=== PATIENT | female | born 1955 | race Caucasian/White ===

== ENCOUNTER 2021-10-28 14:58 | Outpatient (CLI) | payer MEDICARE, BC, SELFPAY ==
[2021-10-28 21:41] LABS: Albumin* 4.5 g/dL (3.3-5.0); Chloride* 105 mmol/L (96-114); Sodium* 141 mmol/L (135-149)
[2021-10-28 21:42] LABS: Potassium* 3.9 mmol/L (3.6-5.1)
[2021-10-28 21:44] LABS: Alanine Aminotransferase* 20 U/L (4-35); Alkaline Phosphatase* 106 U/L (40-150); Aspartate Amino Transferase* 29 U/L (12-35); Bilirubin Total* 0.5 mg/dL (0.1-1.5); Blood Urea Nitrogen* 19 mg/dL (7-30); Calcium* 9.5 mg/dL (8.4-10.6); Carbon Dioxide* 27 mmol/L (20-32); Creatinine* 0.9 mg/dL (0.5-1.5); Estimated Glomerular Filt Rate 70 ml/min; Glucose* 93 mg/dL (60-115); Total Protein* 7.4 g/dL (6.0-8.3)
[2022-12-07 15:37] LABS: Anion Gap 9 mEq/L (7-15)
== END 2021-10-28 14:59 | disposition home or self-care (01) ==
LOC: FRMREF 14:58
PROVIDERS: PCP Family Medicine; Visit Provider Dermatology
DX: Z79.899 Other long term (current) drug therapy (principal); Z51.81 Encounter for therapeutic drug level monitoring; L30.9 Dermatitis, unspecified
CPT/HCPCS: 80053

== ENCOUNTER 2021-12-02 11:48 | Outpatient (CLI) | payer MEDICARE, BC, SELFPAY ==
[2021-12-02 21:45] LABS: Albumin* 4.6 g/dL (3.3-5.0); Potassium* 4.5 mmol/L (3.6-5.1); Sodium* 140 mmol/L (135-149)
[2021-12-02 21:48] LABS: Alanine Aminotransferase* 38 U/L (4-35); Alkaline Phosphatase* 101 U/L (40-150); Aspartate Amino Transferase* 37 U/L (12-35); Bilirubin Total* 0.7 mg/dL (0.1-1.5); Blood Urea Nitrogen* 15 mg/dL (7-30); Calcium* 9.6 mg/dL (8.4-10.6); Carbon Dioxide* 28 mmol/L (20-32); Creatinine* 0.8 mg/dL (0.5-1.5); Estimated Glomerular Filt Rate 81 ml/min; Glucose* 98 mg/dL (60-115); Total Protein* 7.3 g/dL (6.0-8.3)
[2021-12-02 22:01] LABS: Chloride* 104 mmol/L (96-114)
== END 2021-12-02 11:49 | disposition home or self-care (01) ==
LOC: FRMREF 11:56
PROVIDERS: PCP Family Medicine; Visit Provider Dermatology
DX: Z79.899 Other long term (current) drug therapy (principal)
CPT/HCPCS: 80053

== ENCOUNTER 2022-02-24 08:54 | Outpatient (CLI) | payer MEDICARE, BC, SELFPAY ==
[2022-02-24 21:47] LABS: Albumin* 4.6 g/dL (3.3-5.0); Chloride* 105 mmol/L (96-114)
[2022-02-24 21:48] LABS: Sodium* 142 mmol/L (135-149)
[2022-02-24 21:50] LABS: Alanine Aminotransferase* 65 U/L (4-35); Alkaline Phosphatase* 82 U/L (40-150); Aspartate Amino Transferase* 51 U/L (12-35); Bilirubin Total* 0.6 mg/dL (0.1-1.5); Blood Urea Nitrogen* 13 mg/dL (7-30); Carbon Dioxide* 30 mmol/L (20-32); Creatinine* 0.7 mg/dL (0.5-1.5); Estimated Glomerular Filt Rate 95 ml/min; Glucose* 111 mg/dL (60-115); Total Protein* 7.3 g/dL (6.0-8.3)
[2022-02-24 21:51] LABS: Calcium* 9.5 mg/dL (8.4-10.6)
== END 2022-02-24 08:55 | disposition home or self-care (01) ==
LOC: FRMREF 13:29
PROVIDERS: PCP Family Medicine; Visit Provider Dermatology
DX: Z51.81 Encounter for therapeutic drug level monitoring (principal); Z79.899 Other long term (current) drug therapy
CPT/HCPCS: 80053

== ENCOUNTER 2022-05-07 12:05 | Outpatient (CLI) | payer MEDICARE, BC, SELFPAY | END 2022-05-07 12:06 | disposition home or self-care (01) | LOC: FRMREF 12:07 | PROVIDERS: PCP Family Medicine; Visit Provider Dermatology | DX: L43.9 Lichen planus, unspecified (principal); Z79.631 Long term (current) use of antimetabolite agent | CPT/HCPCS: 80076 ==

== ENCOUNTER 2022-10-28 13:43 | Outpatient (CLI) | payer MEDICARE, SELFPAY | END 2022-10-28 13:44 | disposition home or self-care (01) | LOC: NFLDREF 10-31 10:17 | PROVIDERS: PCP Family Medicine; Referring Provider Family Medicine; Visit Provider Dermatology | DX: Z79.631 Long term (current) use of antimetabolite agent (principal) | CPT/HCPCS: 80053 ==

== ENCOUNTER 2023-02-08 08:31 | Outpatient (CLI) | payer MEDICARE, SELFPAY | END 2023-02-08 08:32 | disposition home or self-care (01) | PROVIDERS: Referring Provider Family Medicine; Visit Provider Dermatology | DX: Z79.631 Long term (current) use of antimetabolite agent (principal) | CPT/HCPCS: 80076 ==

== ENCOUNTER 2023-02-11 09:27 | Outpatient (CLI) | payer MEDICARE, SELFPAY | END 2023-02-11 09:28 | disposition home or self-care (01) | PROVIDERS: Visit Provider Dermatology | DX: Z79.631 Long term (current) use of antimetabolite agent (principal) | CPT/HCPCS: 84439; 84443; 84481 ==